=== PATIENT | female | born 1975 | race Caucasian/White ===

== ENCOUNTER 2016-06-07 10:16 | Outpatient (CLI) | payer BC ==
[~2016-06-07] VITALS: Ht 165.1 cm; Wt 130.2 kg
--- OUTSIDE RECORDS SUMMARY | 2016-06-07 10:21 | XMS REPORT ---
Author Author Amanda Bhatt [facility] Address [address] [place], [place] [id number] Care Team Providers [employer] Name Role Phone Amanda Bhatt PCP Unavailable Allergies and Adverse Reactions Name Reaction Notes No known drug allergy Plan of Treatment Planned Activity Comments Planned Date Planned Time Plan/Goal US EXAM PELVIC COMPLETE 01/08/2016 12:00 AM TRANSVAGINAL US NON-OB 01/08/2016 12:00 AM Medications Active Name Start Date Estimated Completion Date SIG Comments hydrocodone-acetaminophen 7.5-325 mg oral tablet take 1 tablet by oral route every 6 hours as needed for pain meloxicam 15 mg oral tablet take 1 tablet (15 mg) by oral route once daily cyclobenzaprine 10 mg oral tablet take 1 tablet (10 mg) by oral route 3 times per day hydrochlorothiazide 25 mg oral tablet take 1 tablet (25 mg) by oral route once daily prednisone 10 mg oral tablet take 1 tablet (10 mg) by oral route once daily Problem List Not available. Vital Signs Date Time BP-Sys(mm[Hg] BP-Isabelle(mm[Hg]) HR(bpm) RR(rpm) Temp WT HT HC BMI BSA BMI Percentile O2 Sat(%) 01/08/2016 10:41:00 AM 124 mmHg 88 mmHg 88 bpm 97.8 F 297.375 lbs 65 in 49.49 kg/m2 2.49 m2 Social History Name Description Comments Tobacco Current every day smoker Alcohol Never History of Procedures Not available. Results Summary Not available. History Of Immunizations Not available. History of Past Illness Name Date of Onset Comments Anxiety Hypertension Menorrhagia Jan 08 2016 11:19AM Payers Insurance Name Company Name Plan Name Plan Number Policy Number Policy Group Number Start Date BCBS [facility] [id number] N/A History of Encounters Visit Date Visit Type Provider 01/08/[address] Amanda Bhatt MD
[2016-06-07 10:25] VITALS: BP 125/84
[2016-06-07] MEDS ORDERED: HYDR-3816 PO (10:44)
[2016-06-07] MEDS ORDERED: HYDR25TA4 PO (10:44)
[2016-06-07] MEDS ORDERED: CYCL10TA9 PO (10:44)
[2016-06-07] MEDS ORDERED: OXYC-202 PO (10:44)
[2016-06-07 11:03] LABS: BASOPHILS % (AUTO) 0 % (0-10); EOSINOPHILS # (AUTO) 0.1 10^3/uL (0.0-0.3); EOSINOPHILS % (AUTO) 0 % (0-10); LYMPHOCYTES % (AUTO) 16 % (12-44); MEAN CORPUSCULAR HEMOGLOBIN 33 PG (25-34); MEAN CORPUSCULAR HGB CONC 34 G/DL (32-36); MEAN CORPUSCULAR VOLUME 95 FL (80-99); MEAN PLATELET VOLUME 10.8 FL (7.4-10.4); MONOCYTES % (AUTO) 8 % (0-12); NEUTROPHILS # (AUTO) 9.9 X 10^3 (1.8-7.8); NEUTROPHILS % (AUTO) 76 % (42-75); PLATELET COUNT 211 10^3/uL (130-400); RED BLOOD COUNT 4.79 10^6/uL (4.35-5.85); RED CELL DISTRIBUTION WIDTH 13.5 % (10.0-14.5)
[2016-06-07 11:21] LABS: ANION GAP 9 MMOL/L (5-14); BLOOD UREA NITROGEN 10 MG/DL (7-18); BUN/CREATININE RATIO 14; CARBON DIOXIDE 23 MMOL/L (21-32); CHLORIDE 108 MMOL/L (98-107); CREATININE SERUM 0.71 MG/DL (0.60-1.30); GFR ESTIMATED > 60; GLUCOSE 102 MG/DL (70-105); SODIUM 140 MMOL/L (135-145)
[2016-06-14] MEDS ORDERED: IBUP-1780 PO (08:06)
[2016-06-14] MEDS ORDERED: DOCU100C37 PO (08:06)
[2016-06-14] MEDS ORDERED: OXYC-202 PO (08:06)
== END 2016-06-07 10:50 | disposition home or self-care (01) ==
LOC: PREOP 10:16
PROVIDERS: ATTEND Obstetrics & Gynecology
DX: Z01.812 Encounter for preprocedural laboratory examination (principal); Z11.2 Encounter for screening for other bacterial diseases; N92.0 Excessive and frequent menstruation with regular cycle; N81.10 Cystocele, unspecified; D64.9 Anemia, unspecified
CPT/HCPCS: 36415; 80048; 85025; 86850; 86900; 86901; 87081

== ENCOUNTER 2016-06-13 10:53 | Day surgery (SDC) | payer BC ==
[~2016-06-13] VITALS: Ht 165.1 cm; Wt 130.2 kg
[~2016-06-13 10:53] MED LIST: CYCL10TA9 PO; HYDR-3816 PO; HYDR25TA4 PO; OXYC-202 PO
[2016-06-13] MEDS ORDERED: NS (IVPB) 50 ML ONE (11:16)
[2016-06-13] MEDS ORDERED: ceFAZolin 1,000 MG (ANCEF) VIAL ONE (11:16)
[2016-06-13] MEDS ORDERED: fentaNYL INJECTION 250 MCG/5 ML AMP ONE (11:52)
[2016-06-13] MEDS ORDERED: ROCURONIUM 50 MG/5 ML (ZEMURON) VIAL IV ONE ×2 (11:53→13:33)
[2016-06-13] MEDS ORDERED: LIDOCAINE PF 2% 10 ML (XYLOCAINE) AMP ONE (11:53)
[2016-06-13] MEDS ORDERED: ONDANSETRON 4 MG/2 ML (SDV) Z0FRAN ONE (11:53)
[2016-06-13] MEDS ORDERED: LIDOCAINE JELLY 2% (XYLOCAINE) 5 ML TUBE ONE (11:53)
[2016-06-13] MEDS ORDERED: proPOfol 200 MG/20 ML (DIPRIVAN) VIAL IV ONE (11:53)
[2016-06-13] MEDS ORDERED: BUP/EPI 0.25% 1:200,000 (MARCAINE) 30 ML VIAL ONE (11:56)
[2016-06-13] MEDS ORDERED: MIDAZOLAM 2 MG/2 ML (VERSED) VIAL ONE (11:58)
[2016-06-13 12:00] VITALS: BP 142/90
[2016-06-13] MEDS: LACTATED RINGERS 1,000 ML IV PRN ×2 (12:00→13:30)
[2016-06-13] MEDS ORDERED: MIDAZOLAM 2 MG/2 ML (VERSED) VIAL IV ONE (12:00)
[2016-06-13] MEDS ORDERED: ceFAZolin 1 GM/NS 50 ML IVPB IV ONE ×2 (12:15)
--- NOTE | 2016-06-13 12:37 | Progress Note-Pre Operative ---
Pre-Operative Progress Note H&P Reviewed The H&P was reviewed, patient examined and no changes noted. Date H&P Reviewed: Jun 13, 2016 Time H&P Reviewed: 12:36 Pre-Operative Diagnosis: DUB/CPP/ Menorrhagia/Prolapse SHERI TORRES MD Jun 13, 2016 12:37 pm
[2016-06-13] MEDS ORDERED: ATROPINE INJ 0.4 MG/ML SDV ONE (13:32)
[2016-06-13] MEDS ORDERED: SEVOFLURANE (ULTANE) 15 ML INHAL SOLN ONE (13:33)
[2016-06-13] MEDS ORDERED: LACTATED RINGERS 1,000 ML IV ONE (13:33)
[2016-06-13] MEDS ORDERED: ALPR0.5T PO (13:39)
[2016-06-13] MEDS ORDERED: ESMOLOL 100 MG/10 ML (BREVIBLOC) VIAL ONE (13:50)
[2016-06-13] MEDS ORDERED: ESTROGENS CONJ IV 25 MG/5 ML (PREMARIN) VIAL ONE (13:53)
[2016-06-13] MEDS ORDERED: morphine INJ 10 MG/ML 1ML (SYR OR VIAL) ONE (13:54)
[2016-06-13] MEDS ORDERED: WATER (STERILE) FOR INJECTION 10 ML ONE (13:54)
[2016-06-13] MEDS: HYDROmorphone (DILAUDID) 2 MG/ML VIAL IVP PRN ×4 (14:24→15:14)
[2016-06-13] MEDS: ONDANSETRON 4 MG/2 ML (SDV) Z0FRAN IVP PRN ×4 (14:42→22:05)
[2016-06-13] MEDS ORDERED: MEPERIDINE (DEMEROL) INJ 50 MG/ML IVP PRN (14:45)
[2016-06-13] MEDS ORDERED: ONDANSETRON 4 MG/2 ML (SDV) Z0FRAN IVP PRN (14:45)
[2016-06-13] MEDS ORDERED: morphine INJ 10 MG/ML 1ML (SYR OR VIAL) IVP PRN (14:45)
[2016-06-13] MEDS ORDERED: PROMETHAZINE INJ 25 MG/ML (PHENERGAN) AMP IVP PRN (14:45)
[2016-06-13 15:58] VITALS: BP 158/87
[2016-06-13] MEDS: MEPERIDINE (DEMEROL) INJ 100 MG/ML IM PRN ×3 (16:51→22:06)
[2016-06-13] MEDS: PROMETHAZINE INJ 25 MG/ML (PHENERGAN) AMP IM PRN ×2 (16:52→20:17)
[2016-06-13] MEDS: D5 LR IV SOLUTION 1,000 ML IV SCH (17:15)
[2016-06-13 18:07] VITALS: BP 157/104
[2016-06-13 20:50] VITALS: BP 146/88
[2016-06-13 23:55] VITALS: BP 155/90
[2016-06-14] MEDS: D5 LR IV SOLUTION 1,000 ML IV SCH ×3 (01:17→17:38)
[2016-06-14] MEDS: MEPERIDINE (DEMEROL) INJ 100 MG/ML IM PRN ×2 (01:18→05:29)
[2016-06-14] MEDS: PROMETHAZINE INJ 25 MG/ML (PHENERGAN) AMP IM PRN ×2 (01:18→05:30)
[2016-06-14 04:10] VITALS: BP 162/98
[2016-06-14] MEDS ORDERED: LABETALOL 200 MG (NORMODYNE) TAB PO ONE (04:30)
[2016-06-14 05:33] VITALS: BP 153/86
[2016-06-14] MEDS: ONDANSETRON 4 MG/2 ML (SDV) Z0FRAN IVP PRN ×2 (07:32→11:51)
[2016-06-14 07:36] VITALS: BP 146/77
[2016-06-14] MEDS ORDERED: methylPREDNISolone 125 MG (Solu-MEDROL) VIAL ONE (08:00)
[2016-06-14] MEDS ORDERED: methylPREDNISolone 40 MG/ML (Solu-MEDROL) VIAL IV NR ×2 (08:00→18:54)
--- NOTE | 2016-06-14 08:04 | Progress Note-Standard ---
Standard Progress Note Progress Notes/Assess & Plan Progress/Assessment & Plan patient complains of persistent nausea. She has had emesis several times through the night. Her pain has come under adequate control. She continues to have the nausea. Low pressures were elevated somewhat in the night she was treated with labetalol to good effect. Patient's Frank catheter had been removed and she is voiding normally. Vital Signs Date Time Temp Pulse Resp B/P Pulse Ox O2 Delivery O2 Flow Rate FiO2 06/14/16 07:36 99.6 62 16 146/77 96 Room Air 06/14/16 05:33 77 20 153/86 95 Room Air 06/14/16 04:10 98.8 98 20 162/98 95 Room Air 06/14/16 01:20 99.3 69 18 96 Nasal Cannula 1.00 06/13/16 23:55 98.4 98 20 155/90 98 Simple Mask 06/13/16 20:50 98.9 99 20 146/88 95 Nasal Cannula 1.00 06/13/16 18:07 97.7 92 16 157/104 97 Nasal Cannula 1.00 06/13/16 15:58 97.6 74 18 158/87 98 Room Air 06/13/16 15:14 98.4 06/13/16 15:04 98.4 06/13/16 14:54 98.4 06/13/16 14:24 98.4 06/13/16 12:00 98.4 110 16 142/90 96 Room Air I & O 06/14/16 06:59 Intake Total 3140 ml Output Total 1840 ml Balance 1300 ml Urine output is been more than adequate Blood pressures are acceptable at the labetalol Patient is afebrile and the pulse is normal Abdomen is soft normal postoperative tenderness. Abdomen is nondistended. There are bowel sounds present. There is no guarding rebound or rigidity Extremities show no clubbing or cyanosis. There is no Homans sign. assessment and plan postoperative day number 1 status post total laparoscopic hysterectomy with bilateral salpingectomy. Patient has persistent postoperative nausea and vomiting. We will repeat her Zofran and add a dose of Solu-Medrol. we'll go ahead and check CBC and CMP. Patient's symptoms not improve we will entertain a CT of the abdomen and pelvis for additional etiologies for persistent problems with nausea and/or pain when patient is ambulating, voiding, tolerating by mouth well, has good pain control and nausea is controlled we will consider discharge home Final Diagnosis DUB/chronic pelvic pain/prolapse/menorrhagia SHERI TORRES MD Jun 14, 2016 8:03 am
[2016-06-14] MEDS ORDERED: OXYC-202 PO (08:06)
[2016-06-14] MEDS ORDERED: DOCU100C37 PO (08:06)
[2016-06-14] MEDS ORDERED: IBUP-1780 PO (08:06)
--- NOTE | 2016-06-14 08:07 | Discharge Instructions ---
Discharge Instructions Discharge Medications New, Converted or Re-Newed RX: RX on Chart Patient Instructions Patient Instructions: as directed Return to The Hospital For: as directed Activity & Diet Discharge Diet: No Restrictions Activity as Tolerated: No Orders-Post D/C & Referrals Follow Up Appt: return to clinic on Friday, June 17, 2016 at 930 a.m. for staple removal Call to make follow up appt. for patient in 4 weeks. Activity: Rest for 24 hours, than as tolerated. Wound Care: May remove Band-Aid tomorrow. Replace as desired. Keep incisions clean and dry. Wash daily with soap and water. Please call in RX to patient pharmacy. Diet: As tolerated-Clear Liquids only if nauseated. Tomorrow, may shower or tub bathe as desired. No driving for 24 hours, no alcoholic beverages for 24 hours, and nothing per vagina (no tampons, douching, or intercourse) for 8 weeks. Patient to return to the clinic as soon as possible for: Temperature greater than 101F, Severe Pain, Foul discharge from incision or vagina, Excessive Bleeding (more than a period). SHERI TORRES MD Jun 14, 2016 8:07 am
[2016-06-14 08:57] LABS: BASOPHILS % (AUTO) 0 % (0-10); EOSINOPHILS % (AUTO) 0 % (0-10); LYMPHOCYTES # (AUTO) 1.2 X 10^3 (1.0-4.0); LYMPHOCYTES % (AUTO) 7 % (12-44); MEAN CORPUSCULAR HEMOGLOBIN 32 PG (25-34); MEAN CORPUSCULAR HGB CONC 34 G/DL (32-36); MEAN CORPUSCULAR VOLUME 93 FL (80-99); MEAN PLATELET VOLUME 10.9 FL (7.4-10.4); MONOCYTES # (AUTO) 1.1 X 10^3 (0.0-1.0); MONOCYTES % (AUTO) 6 % (0-12); NEUTROPHILS # (AUTO) 14.6 X 10^3 (1.8-7.8); NEUTROPHILS % (AUTO) 87 % (42-75); PLATELET COUNT 223 10^3/uL (130-400); RED BLOOD COUNT 4.62 10^6/uL (4.35-5.85); RED CELL DISTRIBUTION WIDTH 13.4 % (10.0-14.5); WHITE BLOOD COUNT 16.8 10^3/uL (4.3-11.0)
[2016-06-14 09:21] LABS: BAND NEUTROPHILS 4 %; BASOPHILS % (MANUAL) 0 %; EOSINOPHILS % (MANUAL) 0 %; LYMPHOCYTES % (MANUAL) 10 %; NEUTROPHILS % (MANUAL) 83 %
[2016-06-14 09:49] LABS: ALANINE AMINOTRANSFERASE 9 U/L (0-55); ALBUMIN 3.6 G/DL (3.2-4.5); ANION GAP 8 MMOL/L (5-14); ASPARTATE AMINO TRANSFERASE 12 U/L (5-34); BILIRUBIN,TOTAL 0.7 MG/DL (0.1-1.0); BLOOD UREA NITROGEN 5 MG/DL (7-18); BUN/CREATININE RATIO 7; CALCIUM 8.6 MG/DL (8.5-10.1); CARBON DIOXIDE 23 MMOL/L (21-32); CHLORIDE 106 MMOL/L (98-107); CREATININE SERUM 0.71 MG/DL (0.60-1.30); GFR ESTIMATED > 60; GLUCOSE 154 MG/DL (70-105); POTASSIUM 3.7 MMOL/L (3.6-5.0); SODIUM 137 MMOL/L (135-145); TOTAL PROTEIN 6.3 G/DL (6.4-8.2)
[2016-06-14] MEDS ORDERED: METOCLOPRAMIDE 10 MG (REGLAN) TAB PO PRN (10:00)
[2016-06-14] MEDS: oxyCODONE/APAP 10/325MG (PERCOCET 10) TABLET PO PRN (10:22)
[2016-06-14] MEDS: DOCUSATE SODIUM 100 MG (COLACE) CAP PO SCH ×2 (10:23→21:00)
--- NOTE | 2016-06-14 11:35 | Anesthesia-General Post-Op ---
General Patient Condition Mental Status/LOC: Same as Preop Cardiovascular: Satisfactory Nausea/Vomiting: Present Respiratory: Satisfactory Pain: Controlled Complications: Absent Post Op Complications Complications None Follow Up Care/Instructions Patient Instructions None needed. Anesthesia/Patient Condition Patient Condition Patient complains of PONV since yesterday. Receiving Zofran, Phenergan, and recently started on Reglan IV. Pain is under control, but NV continues. She reports it's a little better and is attempting to eat some lunch. Will be available for consultation. AMELIE SHARMA CRNA Jun 14, 2016 11:35
--- NOTE | 2016-06-14 11:52 | OPERATIVE REPORT ---
PROCEDURE PHYSICIAN: SHERI TORRES DATE OF PROCEDURE: 06/13/2016 DATE OF DICTATION: 06/13/2016 PREOPERATIVE DIAGNOSIS: 1. Dysfunctional uterine bleeding. 2. Menorrhagia. 3. Chronic pelvic pain. 4. Prolapse. POSTOPERATIVE DIAGNOSES: 1. Dysfunctional uterine bleeding. 2. Menorrhagia. 3. Chronic pelvic pain. 4. Prolapse. OPERATIVE PROCEDURE: Total laparoscopic hysterectomy with bilateral salpingo-oophorectomy using da Maykel assistance. OPERATIVE DESCRIPTION: With the patient in supine position, under satisfactory general anesthesia, she was repositioned in dorsal lithotomy position in the [facility] and prepped and draped usual fashion for abdominal and vaginal surgery using robotic assistance. A weighted speculum placed in the posterior fornix of the vagina. Cervix exposed and grasped anteriorly with single-tooth tenaculum. The uterus was sounded to 11.5 cm of via the uterine sound. The cervix was then serially dilated with Humza dilators to accommodate a TIARRA 2 manipulator, which was placed and the balloon filled with 10 mL of water. Sutures of number 1 Vicryl were placed at 3 and 9 o'clock position of the cervix to affix the uterus and cervix to the manipulator. The manipulator used a 6 mm x 8 cm probe and a 30 mm colpotomy ring. The patient now brought in low dorsal lithotomy position. Frank cath was placed in the urinary bladder and left to dependent drainage. A 12 mm incision was made superior to the umbilicus and a stab wound at Taylor's point. The Veress needle was placed through the stab wound, into abdominal cavity, correct placement confirmed with the water drop test. The abdomen was insufflated 2.4 liters of carbon dioxide. An attempt had been made to place Veress needle at the supraumbilical port and another attempt at trying through a stab wound in the base of the umbilicus; neither of which was successful. There was no problem with placing the device at the Taylor's point. With the abdomen insufflated. A 12 mm port placed through the supraumbilical incision. The abdominal wall was transilluminated and 8 mm ports were placed through the incision of that size, 9 cm lateral to the umbilicus at the level of the umbilicus. All port sites had been infiltrated with 0.25% Marcaine with epinephrine prior to incision. The patient was placed in Trendelenburg, allowing the bowel to spill up out of pelvis. Operative instruments placed in right and left lateral ports and I retired to the da Maykel console. At the console, using the vessel sealer on the right and a bipolar fenestrated grasper on the left, the pelvis was first examined. Both ovaries appeared normal. There was a corpus luteal cyst on the right ovary. The fallopian tube showed evidence of remote tubal sterilization. The appendix was not visible behind multiple loops of small bowel. The uterus was somewhat mottled in appearance and had a large boggy, consistent with adenomyosis. The decision was made to go ahead with intended procedure. The right fallopian tube was grasped and elevated. The mesosalpinx was clamped, cauterized, and divided in a stepwise fashion to the site of the uterus using the vessel sealer and then the vessel sealer was used to go across the utero-ovarian pedicle. The round ligament, the broad ligament and finally the cardinal ligament in the same manner. The same procedure was performed on the left, allowing for conservation of both ovaries, removed both fallopian tube. There was a small hydrosalpinx developing on the right. The anterior lower uterine segment peritoneum was now divided after replacing the vessel sealer with monopolar shear. The bladder was carefully dissected down off the muscularis of the vagina to expose the area where the colpotomy ring was on the cervix. Colpotomy incision was made at 12 o'clock position, extended circumferentially first clockwise to the 2 o'clock position and counterclockwise until the colpotomy ring was completely exposed. Any blood vessels encountered along the way were cauterized to effect hemostasis and to seal them. With the uterus freed, it was extracted through the vagina with the ovary still attached. Two sutures of V-Loc barbed suture was used to close the vaginal cuff starting first from the right angle and continued to the midportion of the cuff and then from the left angle back to the midportion as well being sure to include the terminus of the uterine vessels that had been cauterized in the closure. The bladder peritoneum was brought down onto the vaginal cuff with the last 2 stitches. The pelvis was irrigated and examined for hemostasis. That being complete, with no abnormal pathology remaining, the procedure terminated. The operative instruments were removed under direct vision as were the ports. There was no bleeding from the port sites. The skin incisions were stapled. The fascia at the supraumbilical incision was closed with [id number] suture of 2-0 Vicryl. The speculum was replaced in the vagina. The vaginal cuff examined and was completely reapproximated and completely hemostatic. Sponge and needle counts were correct at the end of procedure. Estimated blood loss for the procedure was around 25 mL. The patient tolerated the procedure well, and was uneventfully awakened from general anesthesia and transferred to the recovery room in stable condition with plans for 23 hour observation. Job ID: [id number] Dictated Date: 06/13/2016 14:25:04 Teletypewriter Operator Date: 06/14/2016 11:38:12 / mathew
[2016-06-14 12:28] VITALS: BP 156/85
[2016-06-14 14:27] LABS: OCCULT BLOOD NEGATIVE QC NEGATIVE (NEGATIVE); OCCULT BLOOD POSITIVE QC POSITIVE (POSITIVE); OCCULT BLOOD,GASTRIC FLUID POSITIVE (NEGATIVE)
[2016-06-14] MEDS: BUTORPHANOL INJ 2 MG/ML (STADOL) VIAL IV PRN ×2 (15:19→20:19)
[2016-06-14 15:41] VITALS: BP 144/85
[2016-06-14] MEDS ORDERED: FAMOTIDINE 20MG/2ML IV (PEPCID) IVP ONE (17:00)
[2016-06-14] MEDS ORDERED: PROMETHAZINE INJ 25 MG/ML (PHENERGAN) AMP IVP ONE (17:00)
--- NOTE | 2016-06-14 17:27 | Progress Note-Standard ---
Standard Progress Note Progress Notes/Assess & Plan Progress/Assessment & Plan patient complains of persistent nausea. She has had emesis several times through the night. Her pain has come under adequate control. She continues to have the nausea. Low pressures were elevated somewhat in the night she was treated with labetalol to good effect. Patient's Frank catheter had been removed and she is voiding normally. Vital Signs Date Time Temp Pulse Resp B/P Pulse Ox O2 Delivery O2 Flow Rate FiO2 06/14/16 07:36 99.6 62 16 146/77 96 Room Air 06/14/16 05:33 77 20 153/86 95 Room Air 06/14/16 04:10 98.8 98 20 162/98 95 Room Air 06/14/16 01:20 99.3 69 18 96 Nasal Cannula 1.00 06/13/16 23:55 98.4 98 20 155/90 98 Simple Mask 06/13/16 20:50 98.9 99 20 146/88 95 Nasal Cannula 1.00 06/13/16 18:07 97.7 92 16 157/104 97 Nasal Cannula 1.00 06/13/16 15:58 97.6 74 18 158/87 98 Room Air 06/13/16 15:14 98.4 06/13/16 15:04 98.4 06/13/16 14:54 98.4 06/13/16 14:24 98.4 06/13/16 12:00 98.4 110 16 142/90 96 Room Air I & O 06/14/16 06:59 Intake Total 3140 ml Output Total 1840 ml Balance 1300 ml Urine output is been more than adequate Blood pressures are acceptable at the labetalol Patient is afebrile and the pulse is normal Abdomen is soft normal postoperative tenderness. Abdomen is nondistended. There are bowel sounds present. There is no guarding rebound or rigidity Extremities show no clubbing or cyanosis. There is no Homans sign. assessment and plan postoperative day number 1 status post total laparoscopic hysterectomy with bilateral salpingectomy. Patient has persistent postoperative nausea and vomiting. We will repeat her Zofran and add a dose of Solu-Medrol. we'll go ahead and check CBC and CMP. Patient's symptoms not improve we will entertain a CT of the abdomen and pelvis for additional etiologies for persistent problems with nausea and/or pain when patient is ambulating, voiding, tolerating by mouth well, has good pain control and nausea is controlled we will consider discharge home 1723:June Laboratory Tests Test 06/14/16 08:40 06/14/16 14:00 Range/Units Alanine Aminotransferase (ALT/SGPT) 9 0-55 U/L Albumin 3.6 3.2-4.5 G/DL Alkaline Phosphatase 56 40-136 U/L Anion Gap 8 5-14 MMOL/L Aspartate Amino Transf (AST/SGOT) 12 5-34 U/L BUN/Creatinine Ratio 7 Band Neutrophils 4 % Basophils # (Auto) 0.0 0.0-0.1 10^3/uL Basophils % (Manual) 0 % Basophils (%) (Auto) 0 0-10 % Blood Morphology Comment NORMAL Blood Urea Nitrogen 5 L 7-18 MG/DL Calcium Level 8.6 8.5-10.1 MG/DL Carbon Dioxide Level 23 21-32 MMOL/L Chloride Level 106 98-107 MMOL/L Creatinine 0.71 0.60-1.30 MG/DL Eosinophils # (Auto) 0.0 0.0-0.3 10^3/uL Eosinophils % (Manual) 0 % Eosinophils (%) (Auto) 0 0-10 % Estimat Glomerular Filtration Rate > 60 Glucose Level 154 H 70-105 MG/DL Hematocrit 43 35-52 % Hemoglobin 14.7 11.5-16.0 G/DL Lymphocytes # (Auto) 1.2 1.0-4.0 X 10^3 Lymphocytes % (Manual) 10 % Lymphocytes (%) (Auto) 7 L 12-44 % Mean Corpuscular Hemoglobin 32 25-34 PG Mean Corpuscular Hemoglobin Concent 34 32-36 G/DL Mean Corpuscular Volume 93 80-99 FL Mean Platelet Volume 10.9 H 7.4-10.4 FL Monocytes # (Auto) 1.1 H 0.0-1.0 X 10^3 Monocytes % (Manual) 3 % Monocytes (%) (Auto) 6 0-12 % Neutrophils # (Auto) 14.6 H 1.8-7.8 X 10^3 Neutrophils % (Manual) 83 % Neutrophils (%) (Auto) 87 H 42-75 % Platelet Count 223 130-400 10^3/uL Potassium Level 3.7 3.6-5.0 MMOL/L Red Blood Count 4.62 4.35-5.85 10^6/uL Red Cell Distribution Width 13.4 10.0-14.5 % Sodium Level 137 135-145 MMOL/L Total Bilirubin 0.7 0.1-1.0 MG/DL Total Protein 6.3 L 6.4-8.2 G/DL White Blood Count 16.8 H 4.3-11.0 10^3/uL Gastric Fluid Occult Blood POSITIVE NEGATIVE Vital Signs Date Time Temp Pulse Resp B/P Pulse Ox O2 Delivery O2 Flow Rate FiO2 06/14/16 16:30 99.0 06/14/16 15:41 101.0 93 18 144/85 94 Room Air 06/14/16 12:28 100.6 64 16 156/85 94 Room Air 06/14/16 07:36 99.6 62 16 146/77 96 Room Air 06/14/16 05:33 77 20 153/86 95 Room Air 06/14/16 04:10 98.8 98 20 162/98 95 Room Air 06/14/16 01:20 99.3 69 18 96 Nasal Cannula 1.00 06/13/16 23:55 98.4 98 20 155/90 98 Simple Mask 06/13/16 20:50 98.9 99 20 146/88 95 Nasal Cannula 1.00 06/13/16 18:07 97.7 92 16 157/104 97 Nasal Cannula 1.00 I & O 06/14/16 07:00 Intake Total 3140 ml Output Total 1840 ml Balance 1300 ml This patient has had persistent nausea vomiting throughout the day. She responded immediately to antiemetics. She has episodes where she feels perfectly fine and then( she's had several episodes of emesis today. Her pain is well controlled. She has very adequate urine output. CBC and CMP were normal. emesis through the day became progressively darker in color Hemoccult was positive. currently the patient reports feeling much better. She denies nausea at this time her pain is well controlled. She inquires as to going home. She's not yet been able to tolerate a meal and keep it down. Suggested remaining loose through the night and see that she is able to tolerate by mouth well and have no recurrence of her nausea vomiting. She seems agreeable to that Assessment and plan postoperative day number 1 as above. We will continue her observation through the evening if she continues to improve we'll allow discharge home tomorrow she has persistent nausea and we will investigate further tomorrow SHERI TORRES MD Jun 14, 2016 5:27 pm
[2016-06-14] MEDS: IBUPROFEN 800 MG (MOTRIN) TAB PO SCH (19:00)
[2016-06-14 20:06] VITALS: BP 139/66
[2016-06-14] MEDS: METOCLOPRAMIDE INJ 10 MG/2 ML (REGLAN) IVP SCH (20:06)
[2016-06-15 01:07] VITALS: BP 143/90
[2016-06-15] MEDS: IBUPROFEN 800 MG (MOTRIN) TAB PO SCH ×2 (01:07→06:00)
[2016-06-15] MEDS: METOCLOPRAMIDE INJ 10 MG/2 ML (REGLAN) IVP SCH ×2 (01:07→06:55)
[2016-06-15] MEDS: D5 LR IV SOLUTION 1,000 ML IV SCH (01:44)
[2016-06-15] MEDS ORDERED: PROMETHAZINE INJ 25 MG/ML (PHENERGAN) AMP IVP PRN (04:45)
[2016-06-15 04:47] VITALS: BP 141/88
--- NOTE | 2016-06-15 07:44 | Progress Note-Standard ---
Standard Progress Note Progress Notes/Assess & Plan Progress/Assessment & Plan patient complains of persistent nausea. She has had emesis several times through the night. Her pain has come under adequate control. She continues to have the nausea. Low pressures were elevated somewhat in the night she was treated with labetalol to good effect. Patient's Frank catheter had been removed and she is voiding normally. Vital Signs Date Time Temp Pulse Resp B/P Pulse Ox O2 Delivery O2 Flow Rate FiO2 06/14/16 07:36 99.6 62 16 146/77 96 Room Air 06/14/16 05:33 77 20 153/86 95 Room Air 06/14/16 04:10 98.8 98 20 162/98 95 Room Air 06/14/16 01:20 99.3 69 18 96 Nasal Cannula 1.00 06/13/16 23:55 98.4 98 20 155/90 98 Simple Mask 06/13/16 20:50 98.9 99 20 146/88 95 Nasal Cannula 1.00 06/13/16 18:07 97.7 92 16 157/104 97 Nasal Cannula 1.00 06/13/16 15:58 97.6 74 18 158/87 98 Room Air 06/13/16 15:14 98.4 06/13/16 15:04 98.4 06/13/16 14:54 98.4 06/13/16 14:24 98.4 06/13/16 12:00 98.4 110 16 142/90 96 Room Air I & O 06/14/16 06:59 Intake Total 3140 ml Output Total 1840 ml Balance 1300 ml Urine output is been more than adequate Blood pressures are acceptable at the labetalol Patient is afebrile and the pulse is normal Abdomen is soft normal postoperative tenderness. Abdomen is nondistended. There are bowel sounds present. There is no guarding rebound or rigidity Extremities show no clubbing or cyanosis. There is no Homans sign. assessment and plan postoperative day number 1 status post total laparoscopic hysterectomy with bilateral salpingectomy. Patient has persistent postoperative nausea and vomiting. We will repeat her Zofran and add a dose of Solu-Medrol. we'll go ahead and check CBC and CMP. Patient's symptoms not improve we will entertain a CT of the abdomen and pelvis for additional etiologies for persistent problems with nausea and/or pain when patient is ambulating, voiding, tolerating by mouth well, has good pain control and nausea is controlled we will consider discharge home 1723:June Laboratory Tests Test 06/14/16 08:40 06/14/16 14:00 Range/Units Alanine Aminotransferase (ALT/SGPT) 9 0-55 U/L Albumin 3.6 3.2-4.5 G/DL Alkaline Phosphatase 56 40-136 U/L Anion Gap 8 5-14 MMOL/L Aspartate Amino Transf (AST/SGOT) 12 5-34 U/L BUN/Creatinine Ratio 7 Band Neutrophils 4 % Basophils # (Auto) 0.0 0.0-0.1 10^3/uL Basophils % (Manual) 0 % Basophils (%) (Auto) 0 0-10 % Blood Morphology Comment NORMAL Blood Urea Nitrogen 5 L 7-18 MG/DL Calcium Level 8.6 8.5-10.1 MG/DL Carbon Dioxide Level 23 21-32 MMOL/L Chloride Level 106 98-107 MMOL/L Creatinine 0.71 0.60-1.30 MG/DL Eosinophils # (Auto) 0.0 0.0-0.3 10^3/uL Eosinophils % (Manual) 0 % Eosinophils (%) (Auto) 0 0-10 % Estimat Glomerular Filtration Rate > 60 Glucose Level 154 H 70-105 MG/DL Hematocrit 43 35-52 % Hemoglobin 14.7 11.5-16.0 G/DL Lymphocytes # (Auto) 1.2 1.0-4.0 X 10^3 Lymphocytes % (Manual) 10 % Lymphocytes (%) (Auto) 7 L 12-44 % Mean Corpuscular Hemoglobin 32 25-34 PG Mean Corpuscular Hemoglobin Concent 34 32-36 G/DL Mean Corpuscular Volume 93 80-99 FL Mean Platelet Volume 10.9 H 7.4-10.4 FL Monocytes # (Auto) 1.1 H 0.0-1.0 X 10^3 Monocytes % (Manual) 3 % Monocytes (%) (Auto) 6 0-12 % Neutrophils # (Auto) 14.6 H 1.8-7.8 X 10^3 Neutrophils % (Manual) 83 % Neutrophils (%) (Auto) 87 H 42-75 % Platelet Count 223 130-400 10^3/uL Potassium Level 3.7 3.6-5.0 MMOL/L Red Blood Count 4.62 4.35-5.85 10^6/uL Red Cell Distribution Width 13.4 10.0-14.5 % Sodium Level 137 135-145 MMOL/L Total Bilirubin 0.7 0.1-1.0 MG/DL Total Protein 6.3 L 6.4-8.2 G/DL White Blood Count 16.8 H 4.3-11.0 10^3/uL Gastric Fluid Occult Blood POSITIVE NEGATIVE Vital Signs Date Time Temp Pulse Resp B/P Pulse Ox O2 Delivery O2 Flow Rate FiO2 06/14/16 16:30 99.0 06/14/16 15:41 101.0 93 18 144/85 94 Room Air 06/14/16 12:28 100.6 64 16 156/85 94 Room Air 06/14/16 07:36 99.6 62 16 146/77 96 Room Air 06/14/16 05:33 77 20 153/86 95 Room Air 06/14/16 04:10 98.8 98 20 162/98 95 Room Air 06/14/16 01:20 99.3 69 18 96 Nasal Cannula 1.00 06/13/16 23:55 98.4 98 20 155/90 98 Simple Mask 06/13/16 20:50 98.9 99 20 146/88 95 Nasal Cannula 1.00 06/13/16 18:07 97.7 92 16 157/104 97 Nasal Cannula 1.00 I & O 06/14/16 07:00 Intake Total 3140 ml Output Total 1840 ml Balance 1300 ml This patient has had persistent nausea vomiting throughout the day. She responded immediately to antiemetics. She has episodes where she feels perfectly fine and then( she's had several episodes of emesis today. Her pain is well controlled. She has very adequate urine output. CBC and CMP were normal. emesis through the day became progressively darker in color Hemoccult was positive. currently the patient reports feeling much better. She denies nausea at this time her pain is well controlled. She inquires as to going home. She's not yet been able to tolerate a meal and keep it down. Suggested remaining loose through the night and see that she is able to tolerate by mouth well and have no recurrence of her nausea vomiting. She seems agreeable to that Assessment and plan postoperative day number 1 as above. We will continue her observation through the evening if she continues to improve we'll allow discharge home tomorrow she has persistent nausea and we will investigate further tomorrow June 15, 2016 Patient is without complaint. She is ambulating, voiding, tolerating by mouth, her nausea has dramatically improved. Her headache has resolved. Her pain is well-controlled. She is requesting discharge home. Vital Signs Date Time Temp Pulse Resp B/P Pulse Ox O2 Delivery O2 Flow Rate FiO2 06/15/16 04:47 99.0 90 18 141/88 94 Room Air 06/15/16 01:07 99.6 109 18 143/90 94 Room Air 06/14/16 20:06 99.5 06/14/16 20:06 100.5 76 18 139/66 95 Room Air 06/14/16 16:30 99.0 06/14/16 15:41 101.0 93 18 144/85 94 Room Air 06/14/16 12:28 100.6 64 16 156/85 94 Room Air I & O 06/15/16 07:00 Intake Total 4350 ml Output Total 3060 ml Balance 1290 ml vital signs are stable. Patient afebrile. Gallbladder ultrasound is pending. Abdomen is benign. Extreme show clubbing or cyanosis. There is no Homans sign. Assessment and plan post operative day number 2 markedly improved over postoperative day number 1. Patient is scheduled for gallbladder ultrasound this morning will we will evaluate that plan for discharge home with follow-up in clinic. Final Diagnosis dysfunctional uterine bleeding/chronic pelvic pain/uterine prolapse SHERI TORRES MD Jun 15, 2016 7:44 am
[2016-06-15 07:57] VITALS: BP 140/84
[2016-06-15] MEDS ORDERED: FLU TRIvalent (5 YOA+) 2016-17 (AFLURIA) 0.5 ML IM ONE (08:30)
[2016-06-15] MEDS: oxyCODONE/APAP 10/325MG (PERCOCET 10) TABLET PO PRN (08:35)
[2016-06-15] MEDS: DOCUSATE SODIUM 100 MG (COLACE) CAP PO SCH (08:35)
--- NOTE | 2016-06-15 08:53 | Diagnostic Imaging Report ---
PROCEDURE: US Gallbladder. TECHNIQUE: Multiple real-time grayscale images were obtained over the right upper quadrant in various projections. INDICATION: Emesis. FINDINGS: Please note that there is decreased resolution of imaging related to patient's large body habitus. The liver demonstrates simple appearing hepatic cysts measuring 1.4 and 1.6 CM in size. No definite solid lesion is seen. The liver is prominent in size measuring 19 CM in craniocaudal dimension. The gallbladder demonstrates no stones or wall thickening. No pericholecystic fluid. The CBD is obscured due to body habitus and overlying bowel. The pancreas is also obscured about the same region. The right kidney is 11.6 CM in length with no hydronephrosis or focal lesion. No fluid collection or ascites seen. Sonographic Li sign is reportedly negative. IMPRESSION: Somewhat limited exam due to large body habitus. Simple appearing hepatic cysts. Dictated by: Dictated on workstation # [id number]
[2016-06-15 11:30] VITALS: BP 140/84
== END 2016-06-15 11:30 | disposition home or self-care (01) ==
LOC: SDC 10:53 → WS 15:14 → SDC 06-15 11:30
PROVIDERS: ATTEND Obstetrics & Gynecology
DX: D25.2 Subserosal leiomyoma of uterus (principal); N81.4 Uterovaginal prolapse, unspecified
CPT/HCPCS: 36415; 76705; 80053; 82271; 84703; 85007; 85027; 88307; 96361; 96372; 96375; 96376